=== PATIENT | male | born 1945 | race Caucasian/White ===

== ENCOUNTER 2020-01-26 10:52 | Observation (INO) | payer MEDICARE ==
--- NOTE | 2020-01-26 09:00 | HP ---
DATE OF SURGERY: 01/26/2020 HISTORY OF PRESENT ILLNESS: The patient is a 74 year-old for three or four weeks severe right upper quadrant pain, nausea, vomiting. No specific food trigger. Ultrasound showed cholelithiasis. I feel he had symptomatic cholelithiasis, acute exacerbation of chronic cholecystitis. I feel he would benefit from cholecystectomy. PAST MEDICAL HISTORY: Hypertension. PAST SURGICAL HISTORY: Hernia surgery and tonsillectomy in the past. MEDICATIONS: Blood pressure medication, low dose aspirin. ALLERGIES: SENSITIVITY TO EPINEPHRINE IN THE PAST. FAMILY HISTORY: Hypertension. SOCIAL HISTORY: No smoking or alcohol abuse. LAB DATA AND TESTS: Ultrasound showed cholelithiasis. REVIEW OF SYSTEMS: Fourteen systems reviewed. No chest pain or palpitations. He does wear hearing aids. Other systems negative or noncontributory as above and per preadmission questionnaire. PHYSICAL EXAMINATION: GENERAL: No acute distress. HEENT: Sclerae nonicteric. NECK: No JVD. CHEST: Equal excursion, nonlabored breathing. CVS: Regular rate and rhythm. ABDOMEN: Soft, some tenderness in the right upper quadrant. No peritoneal signs. EXTREMITIES: No significant edema. NEURO: Alert, oriented, moving extremities symmetrically. No gross motor deficits noted. PSYCH: Appropriate mood and affect. IMPRESSION: Symptomatic cholelithiasis, acute exacerbation of chronic cholecystitis. I feel the patient will benefit from cholecystectomy. Given his increasing symptoms otherwise he will be in emergency room if he does not proceed with cholecystectomy. Risks and benefits explained in detail including but not limited to bleeding or infection, risk of trocar injury or hernia, risk of bowel, bladder or blood vessel injury, risk of bile leak, bile duct injury, retained stone or sludge possibly requiring further procedure either open or ERCP, general risk of anesthesia, deep venous thrombosis, pulmonary embolism, pneumonia, perioperative risk of aches, pains, bloating, constipation and/or loose stools possibly even chronic in nature, possibility converting to open procedure, possibility that this procedure may not improve his symptoms that he may need further work up and/or testing, endoscopy, other studies or procedures, general risk of anesthesia or sedation but not limited to. He understands and agrees to the planned procedure, will proceed with laparoscopic cholecystectomy possible open as an outpatient.
[~2020-01-26 10:52] MED LIST: Lactated Ringers 1,000 ML IV ONE; MEFOXIN 2 GM PREMIX** 2 GM/50 ML ML IV ONE; Sensorcaine 0.25% 10 ML ONE
[2020-01-26] MEDS ORDERED: MEFOXIN 2 GM PREMIX** 2 GM/50 ML ML IV ONE (11:11)
[2020-01-26] MEDS ORDERED: Lactated Ringers 1,000 ML IV ONE ×2 (11:11→16:40)
[2020-01-26] MEDS: Lactated Ringers 1,000 ML IV SCH ×2 (11:12→16:44)
[2020-01-26] MEDS ORDERED: Quelicin Fliptop 200 MG/10 ML ONE (11:17)
[2020-01-26] MEDS ORDERED: SUBLIMAZE 100 MCG/2 ML ONE ×2 (11:17→13:50)
[2020-01-26] MEDS ORDERED: DIPRIVAN 200 MG/20 ML IV ONE (11:17)
[2020-01-26] MEDS ORDERED: Zemuron 100 MG/10 ML ONE (11:17)
[2020-01-26] MEDS ORDERED: BRIDION 200MG/2ML IV ONE (12:47)
[2020-01-26] MEDS ORDERED: Decadron 4 MG INJ ONE (12:47)
[2020-01-26] MEDS ORDERED: TORAdol 30 mg Injection ONE (12:47)
[2020-01-26] MEDS ORDERED: Xylocaine-Mpf 2% 5 Ml Vial ONE (12:47)
[2020-01-26] MEDS ORDERED: Zofran 4 MG/2 ML VIAL ONE ×2 (12:47→15:32)
[2020-01-26] MEDS ORDERED: TRANDATE 100 MG/20 ML MDV FOR DRIP IV ONE ×2 (13:58→14:58)
[2020-01-26] MEDS ORDERED: DILAUDID 2 MG INJECTION ONE (14:17)
--- NOTE | 2020-01-26 14:59 | OP ---
SURGERY DATE/TIME: 01/26/2020 1256 PREOPERATIVE DIAGNOSIS: Symptomatic cholelithiasis, acute exacerbation of chronic cholecystitis. POSTOPERATIVE DIAGNOSIS: Symptomatic cholelithiasis, acute exacerbation of chronic cholecystitis. PROCEDURE: Laparoscopic cholecystectomy. SURGEON: Dr. Percy Smart. ANESTHESIA: General. ESTIMATED BLOOD LOSS: Minimal. INDICATIONS: As noted above. Risks and benefits explained in detail but not limited to and consent obtained. DESCRIPTION OF PROCEDURE AND FINDINGS: The patient was taken to the operating room. General anesthesia induced. Abdomen prepped and draped in the usual sterile fashion. After official time out and no disagreement with planned procedure, a transverse incision made at the supraumbilical area. Fascia grasped and pulled upward. Veress needle inserted and tested with saline. Pneumoperitoneum accomplished insufflating opening pressure of 0-15. An 11 mm bladeless port and camera inserted without difficulty followed by two - 5 mm right upper quadrant ports and 5 mm epigastric port. The gallbladder grasped retracted up over the edge of the liver and laterally away from Calot's triangle, had a lot of fibrofatty reaction around this so slowly and carefully dissecting posterior, lateral to anterior fashion. Cystic duct and infundibular area slowly and carefully well skeletonized until the critical view obtained both anteriorly and posteriorly. Once this was accomplished the cystic duct and cystic artery clipped x3 and divided in usual fashion. Given all of his inflammation an additional clip was placed on the cystic duct stump. Cystic artery clipped x3 and divided in usual fashion. Gallbladder slowly and carefully dissected free from its dense attachment to liver bed staying directly on the gallbladder clipping additional oozing side branches off the cystic artery as necessary. Gallbladder slowly and carefully dissected free. Just prior to releasing from final attachments to the anterior edge of the liver, the liver bed re-inspected. Clips noted in place cystic duct and cystic artery stump. No signs of any active bleeding or bile leakage. It was felt there was no benefit in drain placement. Gallbladder released from final attachments to anterior edge of the liver, pulled up in the supraumbilical port site, decompressed of bile and pulled free. Given the inflammation required clamp and enlarging fascial defect slightly allowing the gallbladder to be pulled free and passed off. The fascial defect closed with puncture closure device with #1 Vicryl. Pneumoperitoneum decompressed. The wound irrigated out. Skin incision closed with 4-0 Vicryl. Skin incision closed with 4-0 Vicryl. Steri-Strips and sterile dressing applied. 0.25% Marcaine local injected along the skin incision fascial defect. There were no immediate complications. Again, copious amount of irrigation irrigating lateral to the liver and subhepatic space until clear. Clips noted in place cystic duct and cystic artery stump. No signs of any active bleeding or bile leakage. It was felt there was no benefit from drain placement. The patient extubated and transferred to recovery room in stable condition. Findings discussed with the family out in the waiting area.
[2020-01-26] MEDS ORDERED: Zofran 4 MG/2 ML VIAL IV PRN ×2 (15:31→18:16)
[2020-01-26] MEDS ORDERED: Lactated Ringers 500 ML IV ONE (16:37)
[2020-01-26] MEDS ORDERED: Lactated Ringers 1,000 ML IV SCH (17:00)
[2020-01-26] MEDS ORDERED: NORCO 5/325 MG PO PRN (18:16)
[2020-01-26] MEDS ORDERED: MORPHINE SULFATE 4 MG INJ IV PRN (18:16)
[2020-01-26] MEDS ORDERED: PROVENTIL 2.5 MG/3 ML NEB IH PRN (18:18)
[2020-01-26] MEDS: Zestril 5 MG PO SCH (20:29)
[2020-01-27] MEDS: Zestril 5 MG PO SCH (10:01)
--- NOTE | 2020-01-27 11:24 | PCM.SSS ---
History of Present Illness - Chief Complaint Chief Complaint: patient was found hypoxic after gall bladder surgey History of Present Illness: is a 74 year old male underwent gallbladder surgery and after that he was hypoxic so he was admitted as observation. - Review of Systems Constitutional: No Fever, No Chills Eyes: No Symptoms Ears, Nose, & Throat: No Symptoms Respiratory: No Cough, No Short Of Breath Cardiac: No Chest Pain, No Edema, No Syncope Abdominal/Gastrointestinal: No Abdominal Pain, No Nausea, No Vomiting, No Diarrhea Genitourinary Symptoms: No Dysuria Musculoskeletal: No Back Pain, No Neck Pain Skin: No Rash Neurological: No Dizziness, No Focal Weakness, No Sensory Changes Psychological: No Symptoms Endocrine: No Symptoms Hematologic/Lymphatic: No Symptoms Immunological/Allergic: No Symptoms Medications & Allergies Home Medications: Home Medication List lisinopriL [Lisinopril] 2.5 mg PO DAILY 01/19/20 [History Confirmed 01/26/20] Hydrocodone/APAP 5-325 Tab^^^ [[place] 5-325 Tablet^^^] 1 each PO Q4HPRN PRN #22 tablet MDD 6 01/26/20 [Rx] Allergies/Adverse Reactions: Allergies Allergy/AdvReac Type Severity Reaction Status Date / Time epinephrine AdvReac Intermediate Verified 01/26/20 11:17 - Past Medical History Past Medical History: Yes Neurological History: No Pertinent History ENT History: No Pertinent History Cardiac History: Hypertension Respiratory History: No Pertinent History Endocrine Medical History: No Pertinent History Musculoskelatal History: No Pertinent History GI Medical History: No Pertinent History History: No Pertinent History Pyscho-Social History: No Pertinent History Male Reproductive Disorders: No Pertinent History - Past Surgical History Past Surgical History: Yes Neuro Surgical History: No Pertinent History Cardiac History: No Pertinent History Respiratory Surgery: No Pertinent History GI Surgical History: Hernia Repair Genitourinary Surgical Hx: No Pertinent History Musculskeletal Surgical Hx: No Pertinent History Male Surgical History: No Pertinent History Other Surgical History: hernia repair times 2 - Social History Smoking Status: Never smoker Exposure to second hand smoke: Yes (as a child) Alcohol: Rarely Drug Use: none - Physical Exam Vital Signs: Vital Signs - 24 hr Temp Pulse Resp BP BP Pulse Ox 01/27/20 10:07 93 L 01/27/20 09:39 98.2 F 76 16 150/70 96 01/27/20 09:37 98.2 F 76 16 150/70 96 01/27/20 07:47 98.2 F 76 16 150/70 96 01/27/20 04:00 97.6 F 86 18 153/76 97 01/27/20 03:41 97.7 F 74 18 157/73 96 01/27/20 00:29 97.7 F 74 18 157/73 96 01/26/20 20:15 976 F 72 18 177/82 93 L 01/26/20 18:18 72 18 91 L 01/26/20 17:30 97.5 F 54 L 16 149/77 95 01/26/20 17:10 97.5 F 60 16 165/85 97 01/26/20 16:30 97.5 F 58 L 16 166/87 92 L 01/26/20 16:07 97.5 F 57 L 16 155/89 90 L 01/26/20 15:30 97.5 F 59 L 16 160/81 90 L 01/26/20 15:00 98 F 59 L 16 161/82 91 L 01/26/20 14:40 98.2 F 77 18 150/84 90 L 01/26/20 11:40 98.2 F 77 18 163/93 96 01/26/20 11:19 98.2 F 77 18 163/93 96 Oxygen-Last 24 hours O2 Percentage 3 Liters = 32% O2 Percentage 3 Liters = 32% O2 Percentage 3 Liters = 32% O2 Percentage 3 Liters = 32% O2 Percentage 3 Liters = 32% O2 Percentage 3 Liters = 32% O2 Percentage 3 Liters = 32% Oxygen Flowrate (L/min)-RT 3 Oxygen Flowrate (L/min)-RT 3 General Appearance: no apparent distress, alert Neurologic Exam: alert, oriented x 3, cooperative, normal mood/affect, nml cerebellar function, nml station & gait, sensation nml, No motor deficits Eye Exam: PERRL/EOMI, eyes nml inspection Ears, Nose, Throat Exam: normal ENT inspection, TMs normal, pharynx normal, moist mucous membranes Neck Exam: normal inspection, non-tender, supple, full range of motion Respiratory Exam: normal breath sounds, lungs clear, No respiratory distress Cardiovascular Exam: regular rate/rhythm, normal heart sounds, normal peripheral pulses Gastrointestinal/Abdomen Exam: soft, normal bowel sounds, No tenderness, No mass Back Exam: normal inspection, normal range of motion, No CVA tenderness, No vertebral tenderness Extremity Exam: normal inspection, normal range of motion, pelvis stable Skin Exam: normal color, warm, dry, No rash Wound Assessment: Skin/Wound Assessment Wound/Incision Assessment Start: 01/27/20 09: 37 Text: Status: Active Freq: Q4H Protocol: Document 01/27/20 09:37 (Rec: 01/27/20 09:59 [id number]) Wound/Incision Assessment Anterior Abdomen Wound Assessment Shift Assessment Wound Type Incision Wound Stage Non Pressure Wound Dressing Status Dry & Intact Drainage Amount None Drainage Odor None/Absent Primary Dressing Gauze Pads Comment 3 puncture sites, dressing CDI Wound Photo Photo Taken No Lymphatic Exam: No adenopathy Results - Other Procedures and Tests Respiratory Therapy 01/26/20 22:00 Oxygen Nasal Cannula 3 lpm 01/27/20 10:07 RT Miscellaneous Order ROUTINE Assessment/Plan (1) Hypoxia Current Visit: Yes Status: Acute Assessment & Plan: Chief Complaint Diagnosis patient was found hypoxic after gall bladder surgey Allergies Allergy/AdvReac Type Severity Reaction Status Date / Time epinephrine AdvReac Intermediate Verified 01/26/20 11:17 Vital Signs (Last 24 hours) Temp Pulse Resp BP BP Pulse Ox 01/27/20 10:07 93 L 01/27/20 09:39 98.2 F 76 16 150/70 96 01/27/20 09:37 98.2 F 76 16 150/70 96 01/27/20 07:47 98.2 F 76 16 150/70 96 01/27/20 04:00 97.6 F 86 18 153/76 97 01/27/20 03:41 97.7 F 74 18 157/73 96 01/27/20 00:29 97.7 F 74 18 157/73 96 01/26/20 20:15 976 F 72 18 177/82 93 L 01/26/20 18:18 72 18 91 L 01/26/20 17:30 97.5 F 54 L 16 149/77 95 01/26/20 17:10 97.5 F 60 16 165/85 97 01/26/20 16:30 97.5 F 58 L 16 166/87 92 L 01/26/20 16:07 97.5 F 57 L 16 155/89 90 L 01/26/20 15:30 97.5 F 59 L 16 160/81 90 L 01/26/20 15:00 98 F 59 L 16 161/82 91 L 01/26/20 14:40 98.2 F 77 18 150/84 90 L 01/26/20 11:40 98.2 F 77 18 163/93 96 Home Medications Medication Instructions Recorded Confirmed Last Taken Type lisinopriL [Lisinopril] 2.5 mg PO DAILY 01/19/20 01/26/20 01/25/20 22:00 History Hydrocodone/APAP 5-325 Tab^^^ 1 each PO Q4HPRN PRN #22 tablet 01/26/20 Unknown Rx [[place] 5-325 Tablet^^^] MDD 6 Current Medications Generic Name Dose Route Start Last Admin Trade Name Freq PRN Reason Stop Dose Admin Hydrocodone Bitart/Acetaminophen 1 tab 01/26/20 18:16 [place] 5/325 Mg PO 01/31/20 18:15 Q4H PRN PRN PAIN Lactated Ringer's 1,000 mls @ 50 mls/hr 01/26/20 10:30 01/26/20 16:44 Lactated Ringers IV 02/25/20 10:29 50 mls/hr .Q20H RUPERT Administration Lisinopril 2.5 mg 01/26/20 22:00 01/27/20 10:01 Zestril 5 Mg PO 02/25/20 21:59 Not Given DAILY RUPERT Morphine Sulfate 3 mg 01/26/20 18:16 Morphine Sulfate 4 Mg Inj IV 01/31/20 18:15 Q1H PRN PRN PAIN Ondansetron HCl 4 mg 01/26/20 15:31 01/26/20 15:35 Zofran 4 Mg/2 Ml Vial IV 02/25/20 15:30 4 mg Q6H PRN PRN Administration NAUSEA/VOMITING Ondansetron HCl 4 mg 01/26/20 18:16 Zofran 4 Mg/2 Ml Vial IV 02/25/20 18:15 Q6H PRN PRN NAUSEA/VOMITING Discontinued Medications Generic Name Dose Route Start Last Admin Trade Name Freq PRN Reason Stop Dose Admin Albuterol Sulfate 2.5 mg 01/26/20 18:18 Proventil 2.5 Mg/3 Ml Neb IH 02/25/20 18:17 Q4H PRN PRN SHORTNESS OF BREATH/WHEEZING Bupivacaine HCl Confirm 01/26/20 06:59 Sensorcaine 0.25% 10 Ml Administered 01/26/20 07:00 Dose 10 ml .ROUTE .STK-MED ONE Dexamethasone Sodium Phosphate Confirm 01/26/20 12:47 Decadron 4 Mg Inj Administered 01/26/20 12:48 Dose 8 mg .ROUTE .STK-MED ONE Fentanyl Citrate Confirm 01/26/20 11:17 Sublimaze 100 Mcg/2 Ml Administered 01/26/20 11:18 Dose 100 mcg .ROUTE .STK-MED ONE Fentanyl Citrate Confirm 01/26/20 13:50 Sublimaze 100 Mcg/2 Ml Administered 01/26/20 13:51 Dose 100 mcg .ROUTE .STK-MED ONE Hydromorphone HCl Confirm 01/26/20 14:17 Dilaudid 2 Mg Injection Administered 01/26/20 14:18 Dose 2 mg .ROUTE .STK-MED ONE Lactated Ringer's Confirm 01/26/20 06:59 Lactated Ringers Administered 01/26/20 07:00 Dose 1,000 mls @ ud IV .STK-MED ONE Cefoxitin Sodium 2 gm in 50 mls @ 100 mls/hr 01/26/20 10:12 01/26/20 11:12 Mefoxin 2 Gm Premix IV 01/26/20 10:41 100 mls/hr ONCALLTOOR ONE Administration Cefoxitin Sodium Confirm 01/26/20 11:11 Mefoxin 2 Gm Premix Administered 01/26/20 11:12 Dose 2 gm in 50 mls @ ud IV .STK-MED ONE Lactated Ringer's Confirm 01/26/20 11:11 Lactated Ringers Administered 01/26/20 11:12 Dose 1,000 mls @ ud IV .STK-MED ONE Lactated Ringer's Confirm 01/26/20 16:37 Lactated Ringers Administered 01/26/20 16:38 Dose 500 mls @ ud IV .STK-MED ONE Lactated Ringer's Confirm 01/26/20 16:40 Lactated Ringers Administered 01/26/20 16:41 Dose 1,000 mls @ ud IV .STK-MED ONE Lactated Ringer's 1,000 mls @ 100 mls/hr 01/26/20 17:00 01/27/20 04:01 Lactated Ringers IV 02/25/20 16:59 100 mls/hr .Q10H RUPERT Administration Ketorolac Tromethamine Confirm 01/26/20 12:47 Toradol 30 Mg Injection Administered 01/26/20 12:48 Dose 30 mg .ROUTE .STK-MED ONE Labetalol HCl Confirm 01/26/20 13:58 Trandate 100 Mg/20 Ml Mdv For Drip Administered 01/26/20 13:59 Dose 100 mg IV .STK-MED ONE Labetalol HCl Confirm 01/26/20 14:58 Trandate 100 Mg/20 Ml Mdv For Drip Administered 01/26/20 14:59 Dose 100 mg IV .STK-MED ONE Lidocaine HCl Confirm 01/26/20 12:47 Xylocaine-Mpf 2% 5 Ml Vial Administered 01/26/20 12:48 Dose 5 ml .ROUTE .STK-MED ONE Ondansetron HCl Confirm 01/26/20 12:47 Zofran 4 Mg/2 Ml Vial Administered 01/26/20 12:48 Dose 4 mg .ROUTE .STK-MED ONE Ondansetron HCl Confirm 01/26/20 15:32 Zofran 4 Mg/2 Ml Vial Administered 01/26/20 15:33 Dose 4 mg .ROUTE .STK-MED ONE Propofol Confirm 01/26/20 11:17 Diprivan 200 Mg/20 Ml Administered 01/26/20 11:18 Dose 200 mg IV .STK-MED ONE Rocuronium Tyler Confirm 01/26/20 11:17 Zemuron 100 Mg/10 Ml Administered 01/26/20 11:18 Dose 30 mg .ROUTE .STK-MED ONE Succinylcholine Chloride Confirm 01/26/20 11:17 Quelicin Fliptop 200 Mg/10 Ml Administered 01/26/20 11:18 Dose 100 mg .ROUTE .STK-MED ONE Sugammadex Sodium Confirm 01/26/20 12:47 Bridion 200mg/2ml Administered 01/26/20 12:48 Dose 200 mg IV .STK-MED ONE Intake & Output (Last 24 hours) 01/24/20 01/25/20 01/26/20 01/27/20 11:59 11:59 11:59 11:59 Intake Total 2660 Output Total 2500 Balance 160 Weight 108.3 kg 108.3 kg Orders (Last 24 hours) Category Date Time Status Nursing [Miscellaneous Nursing Order] ROUTINE Care 01/26/20 17:[address] in Observation ROUTINE Care 01/26/20 17:20 Active [place] Diet Diet 01/27/20 Breakfast Active Regular Diet Diet 01/27/20 Dinner Active Surgical Pathology Routine Lab 01/26/20 13:37 Received Albuterol 2.5 mg/3 ml Neb [Proventil 2.5 mg/3 ml Neb Med 01/26/20 18:18 Discontinued ] 2.5 mg IH Q4H PRN PRN Cefoxitin/Dextrose 2Gm Premix* [Mefoxin 2 gm Premix] Med 01/26/20 11:11 Discontinued 2 gm in 50 ml IV UD Dexamethasone 4 mg [Decadron 4 MG INJ] Med 01/26/20 12:47 Discontinued 8 mg .ROUTE .STK-MED ONE Fentanyl Citrate 100 Mcg/2 ml* [Sublimaze 100 Mcg/2 ml* Med 01/26/20 11:17 Discontinued ] 100 mcg .ROUTE .STK-MED ONE Fentanyl Citrate 100 Mcg/2 ml* [Sublimaze 100 Mcg/2 ml* Med 01/26/20 13:50 Discontinued ] 100 mcg .ROUTE .STK-MED ONE Hydrocodone/APAP 5/325 [[place] 5/325 mg] Med 01/26/20 18:16 Active 1 tab PO Q4H PRN PRN Hydromorphone 2Mg Inj [Dilaudid 2 mg Injection] Med 01/26/20 14:17 Discontinued 2 mg .ROUTE .STK-MED ONE KETOROLAC trometh 30 mg Inj [TORAdol 30 mg Injection Med 01/26/20 12:47 Discontinued ] 30 mg .ROUTE .STK-MED ONE Labetalol HCl 100 mg Mdv [Trandate 100 mg/20 ml Mdv Med 01/26/20 13:58 Discontinued For Drip] 100 mg IV .STK-MED ONE Labetalol HCl 100 mg Mdv [Trandate 100 mg/20 ml Mdv Med 01/26/20 14:58 Discontinued For Drip] 100 mg IV .STK-MED ONE Lidocaine HCl 2% Mpf 5 ml [Xylocaine-Mpf 2% 5 Ml Med 01/26/20 12:47 Discontinued Vial] 5 ml .ROUTE .STK-MED ONE Lisinopril 5 mg [Zestril 5 MG] Med 01/26/20 22:00 Active 2.5 mg PO DAILY Morphine Sulfate 4 mg Inj Med 01/26/20 18:16 Active 3 mg IV Q1H PRN PRN Ondansetron HCl 4 mg/2 ml [Zofran 4 MG/2 ML VIAL] Med 01/26/20 12:47 Discontinued 4 mg .ROUTE .STK-MED ONE Ondansetron HCl 4 mg/2 ml [Zofran 4 MG/2 ML VIAL] Med 01/26/20 15:32 Discontinued 4 mg .ROUTE .STK-MED ONE Ondansetron HCl 4 mg/2 ml [Zofran 4 MG/2 ML VIAL] Med 01/26/20 15:31 Active 4 mg IV Q6H PRN PRN Ondansetron HCl 4 mg/2 ml [Zofran 4 MG/2 ML VIAL] Med 01/26/20 18:16 Active 4 mg IV Q6H PRN PRN Propofol 200 mg/20 ml [Diprivan 200 mg/20 ml] Med 01/26/20 11:17 Discontinued 200 mg IV .STK-MED ONE Ringers Solution,Lactated [Lactated Ringers] 1,000 ml Med 01/26/20 17:00 Discontinued IV 100 mls/hr Ringers Solution,Lactated [Lactated Ringers] 1,000 ml Med 01/26/20 10:30 Active IV 50 mls/hr Ringers Solution,Lactated [Lactated Ringers] 1,000 ml Med 01/26/20 11:11 Discontinued IV UD Ringers Solution,Lactated [Lactated Ringers] 1,000 ml Med 01/26/20 16:40 Discontinued IV UD Ringers Solution,Lactated [Lactated Ringers] 500 ml Med 01/26/20 16:37 Discontinued IV UD Rocuronium Tyler 100 mg/10Ml [Zemuron 100 MG/10 ML] Med 01/26/20 11:17 Discontinued 30 mg .ROUTE .STK-MED ONE Succinylcholine Chloride 200Mg [Quelicin Fliptop 200 MG Med 01/26/20 11:17 Discontinued /10 ML] 100 mg .ROUTE .STK-MED ONE Sugammadex Sodium [Bridion 200Mg/2Ml] Med 01/26/20 12:47 Discontinued 200 mg IV .STK-MED ONE EKG ROUTINE RT 01/26/20 11:12 Completed Oxygen Nasal Cannula 3 lpm RT 01/26/20 22:00 Active Pulse Oximetry .spot check RT 01/26/20 22:00 Active RT Miscellaneous Order ROUTINE RT 01/27/20 10:07 Active Respiratory Therapy Consult ONCE RT 01/26/20 18:18 Completed Patient Care Notes (Last 24 hours) 01/27/20 11:14 Nursing Note by Brigitte Mullen Pt oxygen saturations 94% on RA. Initialized on 01/27/20 11:14 - END OF NOTE 01/27/20 08:12 Nursing Note by Brigitte Mullen reduced o2 to 2lpm n/c at this time and oxygen sats 93%. Will wean and d/c oxygen to keeps sats >90%. Initialized on 01/27/20 08:12 - END OF NOTE 01/27/20 03:08 Nursing Note by Lali Bautista alert and oriented X3. Skin warm, dry. Resp even, easy, nonlabored. Lungs clear. Denies cough. Abdomen round, tender, BS + in all 4 quads but hypoactive. States not passing gas at this time. Continent of bowel and bladder. Urine clear, yellow. No foul odor noted. REsting in bed with eyes open. Denies pain or discomfort at this time. No s/s of distress noted. Initialized on 01/27/20 03:08 - END OF NOTE 01/26/20 17:51 Nursing Note by Tawnya Spencer Call to Dr Moseley to report low O2 level. Order to place on medical floor as ext. stay and call him for orders after in room. Superv. Estelle Kennedy aware . Dr Bing Oscar surgeon informed of pt stay. Pt plan is to go home tomorrow with oxygen level WNL. Report to medical floor nsg. Chart to medical floor desk. Pt to room 103 per w/c. I.V. intact. To bed. Siderails up. Call light within reach. Pt without distresss or deficits other than low oxygen sats. Denies pain. Had some emesis of bile during transport to room of approx. 100cc. Med. list to nsg of home med. Initialized on 01/26/20 17:51 - END OF NOTE 01/26/20 17:05 Nursing Note by Tawnya Spencer In recliner to room air. No c/o except "just still a little sleepy". O2 sat while on room air is 93% to 95% while stimulated, falls to 84 as he begins to fall asleep. Pt states "i want to go home". Instructed pt this nurse will call Dr Smart and Dr Moseley. Initialized on 01/26/20 17:05 - END OF NOTE 01/26/20 16:44 Nursing Note by Tawnya Spencer Pt appears resting. Spouse calls out his name and awakens him intermit. Ambulated to bathroom on room air with assist of two nsg. Spouse present with pt in bathroom. Call light within reach. Nurses standing near room. No diaphoresis while up. Color pink to face. I.V. fluids open. Initialized on 01/26/20 16:44 - END OF NOTE 01/26/20 16:05 Nursing Note by Tawnya Spencer Pt arouses to tactile and verbal stimuli. Upon removal of oxygen pt levels of sat. fall to 88. N/C 3liter applied and pt sat goes up to 92%. Pt appears to fall immediately back to sleep. Initialized on 01/26/20 16:05 - END OF NOTE 01/26/20 15:37 Nursing Note by Tawnya Spencer given. Head of bed down. Pt on 2L N/C at this time. Appears resting now. Initialized on 01/26/20 15:37 - END OF NOTE 01/26/20 15:18 Nursing Note by Tawnya Spencer Head of bed up. Appears resting well. Interm. emesis of bile. Zofran given for nausea. Initialized on 01/26/20 15:18 - END OF NOTE 01/26/20 15:04 Nursing Note by Tawnya Spencer Oxygen mask placed on after decreased sat on room air. Lights down. Cool cloth to neck. Pt states "feeling better". Initialized on 01/26/20 15:04 - END OF NOTE 01/26/20 14:40 (created 01/26/20 15:01) Nursing Note by Tawnya Spencer To room post op. No c/o or s/s of neuro. deficits. Head of bed up. Takes sips fluids. Spouse at bedside. Inc. c/d/i., Ice pack to abd. Initialized on 01/26/20 15:01 - END OF NOTE Code(s): R09.02 - HYPOXEMIA (2) Cholelithiasis Current Visit: Yes Status: Resolved Hospital Summary - Hospital Course Hospital Course: Last Vital Signs Temp 98.2 F 01/27/20 09:39 Pulse 76 01/27/20 09:39 Resp 16 01/27/20 09:39 BP 150/70 01/27/20 09:39 Pulse Ox 93 L 01/27/20 10:07 Allergies epinephrine Adverse Reaction (Intermediate, Verified 01/26/20 11:17) pt states he got diaphoretic and almost passed out, he was at the dentist. Active Medications Hydrocodone Bitart/Acetaminophen ([place] 5/325 Mg) 1 tab PO Q4H PRN PRN PRN Reason: PAIN Stop: 01/31/20 18:15 Lactated Ringer's (Lactated Ringers) 1,000 mls @ 50 mls/hr IV .Q20H RUPERT Stop: 02/25/20 10:29 Last Admin: 01/26/20 16:44 Dose: 50 mls/hr Lisinopril (Zestril 5 Mg) 2.5 mg PO DAILY RUPERT Stop: 02/25/20 21:59 Last Admin: 01/27/20 10:01 Dose: Not Given Morphine Sulfate (Morphine Sulfate 4 Mg Inj) 3 mg IV Q1H PRN PRN PRN Reason: PAIN Stop: 01/31/20 18:15 Ondansetron HCl (Zofran 4 Mg/2 Ml Vial) 4 mg IV Q6H PRN PRN PRN Reason: NAUSEA/VOMITING Stop: 02/25/20 15:30 Last Admin: 01/26/20 15:35 Dose: 4 mg Ondansetron HCl (Zofran 4 Mg/2 Ml Vial) 4 mg IV Q6H PRN PRN PRN Reason: NAUSEA/VOMITING Stop: 02/25/20 18:15 Intake & Output 01/26/20 01/27/20 11:59 11:59 Intake Total 2660 Output Total 2500 Balance 160 Weight 108.3 kg 108.3 kg Orders 01/26/20 17:20 Nursing [Miscellaneous Nursing Order] ROUTINE Place in Observation ROUTINE 01/26/20 22:00 Lisinopril 5 mg [Zestril 5 MG] 2.5 mg PO DAILY 01/27/20 10:07 RT Miscellaneous Order ROUTINE 01/27/20 Breakfast [place] Diet 01/27/20 Dinner Regular Diet - Vitals & Intake/Output Vital Signs: Vital Signs Temperature 98.2 F 01/27/20 09:39 Pulse Rate 76 01/27/20 09:39 Respiratory Rate 16 01/27/20 09:39 Blood Pressure 150/70 01/27/20 09:39 O2 Sat by Pulse Oximetry 93 L 01/27/20 10:07 Oxygen-Last Documented O2 Percentage 3 Liters = 32% Intake & Output: Intake & Output 01/24/20 01/25/20 01/26/20 01/27/20 11:59 11:59 11:59 11:59 Intake Total 2660 Output Total 2500 Balance 160 Weight 108.3 kg 108.3 kg - Procedures and Test Procedures and Tests throughout Hospitalization: Therapy Orders & Screens 01/26/20 11:12 EKG ROUTINE Comment: 01/26/20 18:18 Respiratory Therapy Consult ONCE Comment: Reason For Exam: Diagnosis: gall stones 01/26/20 22:00 Oxygen Nasal Cannula 3 lpm Comment: Diagnosis: gall stones 01/27/20 10:07 RT Miscellaneous Order ROUTINE Comment: Physician Instructions: wean oxygen Reason For Exam: Diagnosis: HYPOXIA - Discharge Discharge Date: 01/27/20 Disposition: Home, Self-Care Condition: Stable Prescriptions: New Hydrocodone/APAP 5-325 Tab^^^ [[place] 5-325 Tablet^^^] 1 each PO Q4HPRN PRN # 22 tablet MDD 6 PRN Reason: Moderate To Severe Pain Continue lisinopriL [Lisinopril] 2.5 mg PO DAILY Follow up with: BRITTNEY MOSELEY MD [Primary Care Provider] - 1 Week
[2020-01-27 12:16] VITALS: BP 161/73; PULSE 70; O2SAT 92
== END 2020-01-27 12:40 | disposition home or self-care (01) ==
LOC: SDC 10:52 → MED SURG 17:20 → SDC 17:56
PROVIDERS: ADMIT General Practice; ATTEND General Practice
DX: R09.02 Hypoxemia (principal); K80.10 Calculus of gallbladder with chronic cholecystitis without obstruction; I10 Essential (primary) hypertension; Z79.899 Other long term (current) drug therapy
CPT/HCPCS: 47562; 93005; 94760; G0378; 88304; 99100; J0330; J0694; J1100; J1170; J1885; J2405; J2704; J3010; A9270-GY